=== PATIENT | female | born 1960 | race Two or more races ===

== ENCOUNTER 2018-03-07 22:09 | Emergency (ER) | payer OTHER ==
[~2018-03-07] VITALS: Ht 154.9 cm; Wt 55.8 kg
--- NOTE | 2018-03-07 22:15 | NUR ---
PT AMBULATED IN TO THE ER WITH A C/O CP. PT AMBULATED TO ER#6. DR ISIDRO IS AT THE BEDSIDE EVAUATING THE PT.
--- NOTE | 2018-03-07 22:19 | NUR ---
PT SPEAKS IBOL (AMISH) AND DENIES ANY MEDICAL HX. PT ALSO DENIES CP AT THIS TIME. PT IS HYPERTENSIVE AT 170/81. PT IS ON THE MONITOR AND CONTINUOUS PULSE OX. RESP EVEN AND UNLABORED. NON DIAPHORETIC.
[2018-03-07] MEDS ORDERED: ASPIRIN 81 MG TAB.CHEW ONE (22:24)
[2018-03-07] MEDS ORDERED: ASPIRIN 81 MG TAB.CHEW PO ONE (22:30)
[2018-03-07 22:42] LABS: BASOPHILS % (AUTO) 0.8 % (0.0-2.0); EOSINOPHILS % (AUTO) 2.7 % (0.0-6.0); HEMATOCRIT 42 % (33-45); HEMOGLOBIN 13.8 g/dL (11.5-14.8); LYMPHOCYTES # (AUTO) 2.3 /CMM (0.8-4.8); LYMPHOCYTES % (AUTO) 39.2 % (20.0-44.0); MEAN CORPUSCULAR HGB CONC 33 g/dl (31.0-36.0); MEAN CORPUSCULAR VOLUME 92 fL (82-100); MONOCYTES # (AUTO) 0.9 /CMM (0.1-1.30); MONOCYTES % (AUTO) 15.1 % (2.0-12.0); NEUTROPHILS # (AUTO) 2.5 /CMM (1.8-8.9); NEUTROPHILS % (AUTO) 42.2 % (43.0-81.0); PLATELET COUNT (AUTO) 331 /CMM (150-450); RED BLOOD CELL COUNT(AUTO) 4.57 MIL/uL (4.0-5.2); WHITE BLOOD COUNT (AUTO) 5.9 K/uL (4.3-11.0)
[2018-03-07 22:50] LABS: CALCIUM, SERUM 8.7 mg/dL (8.5-10.1); CARBON DIOXIDE 29 mmol/L (21-32); CHLORIDE 101 mmol/L (98-107); CREATININE 0.7 mg/dL (0.6-1.3); GLUCOSE 97 mg/dL (74-106); POTASSIUM 3.8 mmol/L (3.5-5.1); SODIUM SERUM 137 mmol/L (136-145); UREA NITROGEN, BLOOD 13 mg/dL (7-18)
--- NOTE | 2018-03-07 22:51 | NUR ---
CXR IN PROGRESS AT THE BEDSIDE.
--- NOTE | 2018-03-07 22:57 | NUR ---
PT IS C/O INTERMITTENT MID STERNAL CP X 2 SINCE PT ARRIVED. PAIN SUBSIDES QUICKLY.
--- NOTE | 2018-03-07 23:06 | NUR ---
DR ISIDRO IS AT THE BEDSIDE SPEAKING TO THE PT.
[2018-03-07] MEDS ORDERED: PANTOPRAZOLE 40 MG VIAL IV ONE (23:30)
[2018-03-07] MEDS ORDERED: MAG HYDROX/AL HYDROX/SIMETH 30 ML UDC PO ONE (23:30)
[2018-03-07] MEDS ORDERED: PANTOPRAZOLE 40 MG VIAL ONE (23:37)
[2018-03-07] MEDS ORDERED: MAGNESIUM HYDROXIDE 30 ML UDC ONE (23:37)
--- NOTE | 2018-03-07 23:56 | NUR ---
IV removed. Catheter intact and site benign. Pressure and 4x4 applied to site. No bleeding noted. Patient discharged to home in stable condition. Written and verbal after care instructions given. Patient verbalizes understanding of instruction AND RX. PT AMBULATED OUT WITH A STEADY GAIT. VSS. PT'S SISTER IS DRIVING PT HOME.
[2018-03-07 23:57] VITALS: BP 132/85
== END 2018-03-07 23:58 | disposition home or self-care (01) ==
LOC: ER 22:12
DX: R07.89 Other chest pain (principal); R06.02 Shortness of breath; R10.13 Epigastric pain; I10 Essential (primary) hypertension
CPT/HCPCS: 36415; 71045-TC; 80048-TC; 84484-TC; 85025-TC; 85730-TC; A4606; C9113